=== PATIENT | female | born 1945 | race Caucasian/White ===

== ENCOUNTER 2016-10-28 10:36 | Inpatient (IN) | payer MEDICARE, OTHER ==
[2016-10-28] MEDS ORDERED: Sodium Chloride 0.9% 1,000 ML IV ONE ×2 (11:04→14:18)
[2016-10-28] MEDS ORDERED: Ondansetron 4 MG/2 ML SDV IVPUSH ONE (11:04)
[2016-10-28] MEDS ORDERED: Pantoprazole 40 MG Vial IVPUSH ONE (11:09)
--- NOTE | 2016-10-28 11:10 | EDM.PDOC ---
ED HPI GENERAL MEDICAL PROBLEM - General Chief Complaint: Gastrointestinal Problem Stated Complaint: PT SICK(HAVEN'T EATEN FOR FOUR DAYS) Time Seen by Provider: 10/28/16 10:55 Source of Information: Reports: Patient, Family History Limitations: Reports: No Limitations - History of Present Illness INITIAL COMMENTS - FREE TEXT/NARRATIVE: HISTORY AND PHYSICAL: History of present illness: Patient comes to the emergency room brought in by her daughter. She complains of abdominal pain for the past 5 days, decreased appetite and poor oral intake for the past 4 days. Patient's pain has been getting worse rather than better. Describes the pain as generalized throughout her abdomen but is worse to the epigastric area and to suprapubic area. Has had quite a bit of nausea and a couple episodes of vomiting over the past 2 days. Saw her PCP, Dr. Quiros, on Saturday and was prescribed hydrocodone and Zofran. She's been taking his medications as prescribed and with minimal improvement in her symptoms. Patient states that she took one Zofran this morning and rates her current nausea as 4- 5. Has had a foul odor to urine and some mild burning with urination, no blood in her urine is noted. Has not had a bowel movement for 2 days which is unusual for her. She's had no blood in her stools. Denies fever and chills. No chest pain shortness of breath or difficulty breathing. No earaches or sore throat. No swelling to her feet or lower legs. No joint pain. She is scheduled for a CT of her abdomen and pelvis with oral contrast tomorrow due to elevated liver enzymes and pain. She does not know how she'll be able to drink the oral contrast with the amount of pain and nausea that she is experiencing. Review of systems: As per history of present illness and below otherwise all systems reviewed and negative. Past medical history: As per history of present illness and as reviewed below otherwise noncontributory. Surgical history: As per history of present illness and as reviewed below otherwise noncontributory. Social history: No reported history of drug or alcohol abuse. Family history: As per history of present illness and as reviewed below otherwise noncontributory. Physical exam: HEENT: Atraumatic, normocephalic. Oral mucous membranes are dry. throat clear, neck supple, nontender. Lungs: Clear to auscultation, breath sounds equal bilaterally. Heart: S1S2, regular rate and rhythm. No murmur gallop click or rub., negative for clicks, rubs, or JVD. Abdomen: Bowel sounds are normoactive throughout. Abdomen is soft and nondistended. She is quite tender over the epigastric and suprapubic areas. No guarding masses or rebound. No CVA tenderness. Pelvis: Stable nontender. Genitourinary: Deferred. Rectal: Deferred. Extremities: Atraumatic, negative calf pain cyanosis and edema to feet and lower legs. Neurovascular unremarkable. Neuro: Awake, alert, oriented. Motor and sensory unremarkable throughout. Exam nonfocal. Diagnostics: [CBC, CMP, amylase, lipase, urinalysis, EKG abdominal x-ray] Therapeutics: [1 L normal saline, Zofran 4 mg IV, Protonix 80 mg] Impression: [Abdominal pain Nausea Dehydration Elevated liver enzymes] Plan: As you to patient that her labs are unremarkable other than elevated liver enzymes. Abdominal x-ray shows no obstruction. Patient would like to be admitted for inpatient evaluation and treatment. This is reviewed with Dr. Ancelmo García who agrees to accept patient for observation. He requests that an order be placed for CT abdomen and pelvis with oral contrast but that it will be completed while patient is in observation. And her family are in agreement with today's plan. ] Definitive disposition and diagnosis as appropriate pending reevaluation and review of above. Abdominal Pain Score (Numeric/FACES): 9 - Related Data Allergies Allergy/AdvReac Type Severity Reaction Status Date / Time No Known Allergies Allergy Verified 10/28/16 11:01 Home Meds: Home Meds Albuterol Sulfate [Proair Hfa] 1 - 2 puff INH Q4H PRN 09/30/15 [History] Simvastatin [Zocor] 40 mg PO BEDTIME 09/30/15 [History] Hydrocodone/Acetaminophen [Hydrocodon-Acetaminophen 5-325] 5 - 325 mg PO Q4HR PRN 10/28/16 [History] Ondansetron HCl [Zofran] 4 mg PO Q4H PRN 10/28/16 [History] Past Medical History HEENT History: Reports: Cataract Other HEENT History: wears glasses, has upper denture and lower partial Cardiovascular History: Reports: High Cholesterol Respiratory History: Reports: Asthma Gastrointestinal History: Reports: None Genitourinary History: Reports: None 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 Musculoskeletal History: Reports: Arthritis, Fracture Other Musculoskeletal History: hx of fx ribs and toe Neurological History: Reports: None Psychiatric History: Reports: None Endocrine/Metabolic History: Reports: None Hematologic History: Reports: None Immunologic History: Reports: None Oncologic (Cancer) History: Reports: Cervix, Colon Dermatologic History: Reports: None - Past Surgical History HEENT Surgical History: Reports: Cataract Surgery Oncologic Surgical History: Reports: Other (See Below) Social & Family History - Tobacco Use Smoking Status *Q: Former Smoker - Recreational Drug Use Recreational Drug Use: No Drug Use in Last 12 Months: No ED ROS GENERAL - Review of Systems Review Of Systems: ROS reveals no pertinent complaints other than HPI. ED EXAM, GI/ABD - Physical Exam Exam: See Below Course - Vital Signs Last Recorded V/S: Last Vital Signs Temp 98.7 F 10/28/16 12:47 Pulse 76 10/28/16 14:55 Resp 18 10/28/16 14:55 BP 152/72 H 10/28/16 14:55 Pulse Ox 95 10/28/16 14:55 - Orders/Labs/Meds Orders: Active Orders 24 hr Category Date Time Status Patient Status [ADT] Stat ADT 10/28/16 14:23 Active EKG Documentation Completion [RC] STAT Care 10/28/16 11:06 Active Abdomen 2V AP Flat Upright [CR] Stat Exams 10/28/16 12:31 Taken Abdomen Pelvis w Cont [CT] Stat Exams 10/28/16 14:22 Ordered Sodium Chloride 0.9% [Normal Saline] 1,000 ml Med 10/28/16 14:18 Active IV .Bolus Medication Orders Sodium Chloride (Normal Saline) 1,000 mls @ 999 mls/hr IV .Bolus ONE Stop: 10/28/16 15:18 Last Admin: 10/28/16 14:22 Dose: 999 mls/hr Labs: Laboratory Tests 10/28/16 10/28/16 10/28/16 Range/Units 11:06 11:10 11:10 WBC 8.71 (4.0-11.0) K/uL RBC 4.36 (4.30-5.90) M/uL Hgb 12.5 (12.0-16.0) g/dL Hct 37.2 (36.0-46.0) % MCV 85.3 (80.0-98.0) fL MCH 28.7 (27.0-32.0) pg MCHC 33.6 (31.0-37.0) g/dL RDW Std Deviation 40.8 (28.0-62.0) fl RDW Coeff of Ki 13 (11.0-15.0) % Plt Count 485 H (150-400) K/uL MPV 9.00 (7.40-12.00) fL Neut % (Auto) 78.6 (48.0-80.0) % Lymph % (Auto) 11.3 L (16.0-40.0) % [place] % (Auto) 9.6 (0.0-15.0) % Eos % (Auto) 0.2 (0.0-7.0) % Baso % (Auto) 0.3 (0.0-1.5) % Neut # (Auto) 6.8 H (1.4-5.7) K/uL Lymph # (Auto) 1.0 (0.6-2.4) K/uL [place] # (Auto) 0.8 (0.0-0.8) K/uL Eos # (Auto) 0.0 (0.0-0.7) K/uL Baso # (Auto) 0.0 (0.0-0.1) K/uL Nucleated RBC % 0.0 /100WBC Nucleated RBCs # 0 K/uL Sodium 137 (136-146) mmol/L Potassium 4.3 (3.5-5.1) mmol/L Chloride 103 (98-110) mmol/L Carbon Dioxide 22 (21-31) mmol/L BUN 15 (6.0-23.0) mg/dL Creatinine 0.7 (0.6-1.5) mg/dL Est Cr Clr Drug Dosing 62.73 mL/min Estimated GFR (MDRD) > 60.0 ml/min Glucose 93 (60-110) mg/dL Calcium 9.8 (8.8-10.8) mg/dL Total Bilirubin 0.9 (0.1-1.5) mg/dL AST 113 H (5-40) IU/L ALT 77 H (8-54) IU/L Alkaline Phosphatase 519 H (40-150) Total Protein 6.3 (6.0-8.0) g/dL Albumin 3.4 (3.4-4.8) g/dL Globulin 2.9 (2.0-3.5) g/dL Albumin/Globulin Ratio 1.2 L (1.3-2.8) Amylase 30 (10-90) U/L Lipase 38 (7-80) U/L Urine Color DARK YELLOW Urine Appearance SLT CLOUDY Urine pH 6.0 (5.0-8.0) Ur Specific [place] 1.020 (1.001-1.035) Urine Protein TRACE (NEGATIVE) mg/dL Urine Glucose (UA) NEGATIVE (NEGATIVE) mg/dL Urine Ketones 40 H (NEGATIVE) mg/dL Urine Occult Blood TRACE-LYSED (NEGATIVE) Urine Nitrite NEGATIVE (NEGATIVE) Urine Bilirubin MODERATE H (NEGATIVE) Urine Ictotest NEGATIVE Urine Urobilinogen 4.0 H (<2.0) EU/dL Ur Leukocyte Esterase MODERATE (NEGATIVE) Urine RBC 2-4 (0-2/HPF) Urine WBC 15-20 (0-5/HPF) Ur Epithelial Cells MODERATE (NONE-FEW) Urine Bacteria 1+ H (NEGATIVE) Urine Mucus LIGHT (NONE-MOD) Meds: Medications Generic Name Dose Route Start Last Admin Trade Name Freq PRN Reason Stop Dose Admin Sodium Chloride 1,000 mls @ 999 mls/hr 10/28/16 14:18 10/28/16 14:22 Normal Saline IV 10/28/16 15:18 999 mls/hr .Bolus ONE Administration Discontinued Medications Generic Name Dose Route Start Last Admin Trade Name Freq PRN Reason Stop Dose Admin Sodium Chloride 1,000 mls @ 999 mls/hr 10/28/16 11:04 10/28/16 11:13 Normal Saline IV 10/28/16 12:04 999 mls/hr STAT ONE Administration Pantoprazole Sodium 80 mg/ 10 mls @ 300 mls/hr 10/28/16 11:24 10/28/16 11:27 Sodium Chloride IVPUSH 10/28/16 11:25 Not Given NOW ONE Ondansetron HCl 4 mg 10/28/16 11:04 10/28/16 11:14 Zofran IVPUSH 10/28/16 11:05 4 mg ONETIME ONE Administration Pantoprazole Sodium 80 mg 10/28/16 11:09 10/28/16 11:27 Protonix Iv IVPUSH 10/28/16 11:10 80 mg .BOLUS ONE Administration Departure - Departure Time of Disposition: 14:23 Disposition: Refer to Observation Condition: Good Clinical Impression: Abdominal pain - Discharge Information - My Orders Last 24 Hours: My Active Orders 10/28/16 11:06 EKG Documentation Completion [RC] STAT 10/28/16 12:31 Abdomen 2V AP Flat Upright [CR] Stat 10/28/16 14:18 Sodium Chloride 0.9% [Normal Saline] 1,000 ml IV .Bolus 10/28/16 14:22 Abdomen Pelvis w Cont [CT] Stat 10/28/16 14:23 Patient Status [ADT] Stat - Assessment/Plan Last 24 Hours: My Active Orders 10/28/16 11:06 EKG Documentation Completion [RC] STAT 10/28/16 12:31 Abdomen 2V AP Flat Upright [CR] Stat 10/28/16 14:18 Sodium Chloride 0.9% [Normal Saline] 1,000 ml IV .Bolus 10/28/16 14:22 Abdomen Pelvis w Cont [CT] Stat 10/28/16 14:23 Patient Status [ADT] Stat
[2016-10-28] MEDS ORDERED: Pantoprazole 80 MG in Sodium Chloride 0.9% 10 ML IVPUSH ONE (11:24)
[2016-10-28 11:47] LABS: CHLORIDE,CL 103 mmol/L (98-110); SODIUM,NA 137 mmol/L (136-146)
[2016-10-28] MEDS: Sodium Chloride 0.9% 1,000 ML IV SCH (15:57)
[2016-10-28] MEDS ORDERED: Iopamidol 755 MG/ML 500 ML Multipack Bottle IVPUSH STA (17:47)
[2016-10-28] MEDS: Ondansetron 4 MG/2 ML SDV IVPUSH PRN ×2 (17:51→22:10)
--- NOTE | 2016-10-28 19:40 | PCM.HP ---
H&P History of Present Illness - History of Present Illness Initial Comments - Free Text/Narative: 70 yo female with a history of nausea and abdominal discomfort for the past two months. Over the past several days she has not been able to keep anything down and has become progressively week. She was seen by Dr. Quiros and noted to have elevated liver enzymes, She had a liver ultrasound that was abdnormal and she was schedualed for a CT scan tomorrow. Due to worsening of her symptoms she presented to the ED today. CT scan of abdomen was performed and showed numerous large massess throughout the liver consistent with metastatic dsease. There are enlarged lymph nodes abutting the uncinate process of the pancreas and the 3rd part of the duodenum which demonstrated wall thickening. She has a history of colon cancer in 2003 with resection. She reports she did not need chemotherapy and she had follow up for five years without reoccurrence. She had a recent colonoscopy last year which reported polyps and sigmoiditis. Abdominal Pain Score (Numeric/FACES): 9 - Related Data Allergies/Adverse Reactions: Allergies Allergy/AdvReac Type Severity Reaction Status Date / Time No Known Allergies Allergy Verified 10/28/16 11:01 Home Medications: Home Meds Albuterol Sulfate [Proair Hfa] 1 - 2 puff INH Q4H PRN 09/30/15 [History] Simvastatin [Zocor] 40 mg PO BEDTIME 09/30/15 [History] Hydrocodone/Acetaminophen [Hydrocodon-Acetaminophen 5-325] 5 - 325 mg PO Q4HR PRN 10/28/16 [History] Ondansetron HCl [Zofran] 4 mg PO Q4H PRN 10/28/16 [History] Triamcinolone Acetonide [Triamcinolone Acetonide 0.1% Crm] PRN 10/28/16 [History ] Past Medical History HEENT History: Reports: Cataract Other HEENT History: wears glasses, has upper denture and lower partial Cardiovascular History: Reports: High Cholesterol Respiratory History: Reports: Asthma Gastrointestinal History: Reports: None Genitourinary History: Reports: 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 Musculoskeletal History: Reports: Arthritis, Fracture Other Musculoskeletal History: hx of fx ribs and toe Neurological History: Reports: None Psychiatric History: Reports: None Endocrine/Metabolic History: Reports: None Hematologic History: Reports: None Immunologic History: Reports: None Oncologic (Cancer) History: Reports: Cervix, Colon Dermatologic History: Reports: None - Infectious Disease History Infectious Disease History: Reports: Chicken Pox, Measles, Mumps - Past Surgical History HEENT Surgical History: Reports: Cataract Surgery Oncologic Surgical History: Reports: Other (See Below) Social & Family History - Family History Family Medical History: Noncontributory - Tobacco Use Smoking Status *Q: Former Smoker Second Hand Smoke Exposure: Yes - Caffeine Use Caffeine Use: Reports: Coffee Other Caffeine Use: 3 cups/day Caffeine Use Comment: 1-2cups/day - Recreational Drug Use Recreational Drug Use: No Drug Use in Last 12 Months: No H&P Review of Systems - Review of Systems: Review Of Systems: ROS reveals no pertinent complaints other than HPI. Exam - Exam Exam: See Below - Vital Signs Vital Signs: Last Vital Signs Temp 36.3 C 10/28/16 14:59 Pulse 72 10/28/16 17:20 Resp 18 10/28/16 17:20 BP 180/88 H 10/28/16 17:20 Pulse Ox 94 L 10/28/16 17:20 Weight: 69.717 kg - Exam General: Alert, Oriented, 4 Lungs: Clear to Auscultation, Normal Respiratory Effort Cardiovascular: Regular Rate, Regular Rhythm GI/Abdominal Exam: Soft, Non-Tender, No Distention, No Mass Extremities: Normal Inspection, Normal Range of Motion, Non-Tender, No Pedal Edema, Normal Capillary Refill Skin: Warm, Dry, Intact - Patient Data Result Diagrams: 10/28/16 11:10 10/28/16 11:10 *Q Meaningful Use (ADM) - VTE *Q VTE Criteria *Q: - Stroke *Q Stroke Criteria *Q: - AMI *Q AMI Criteria *Q: Problem List Initiated/Reviewed/Updated: Yes Orders Last 24hrs: Active Orders 24 hr Category Date Time Status Antiembolic Devices [RC] PER UNIT ROUTINE Care 10/28/16 19:29 Ordered Oxygen Therapy [RC] PRN Care 10/28/16 19:28 Ordered VTE/DVT Education [RC] PER UNIT ROUTINE Care 10/28/16 19:28 Ordered Vital Signs [RC] Q4H Care 10/28/16 19:28 Ordered NPO [Nothing Per Oral Diet] [DIET] Diet 10/28/16 Dinner Active Morphine Med 10/28/16 19:28 Ordered 2 mg IVPUSH Q2H PRN Ondansetron [Zofran] Med 10/28/16 15:30 Active 4 mg IVPUSH Q3H PRN Promethazine [Phenergan] Med 10/28/16 19:28 Ordered 25 mg IM Q6H PRN Sodium Chloride 0.9% [Normal Saline] 1,000 ml Med 10/28/16 15:30 Active IV ASDIRECTED Sequential Compression Device [OM.PC] Per Unit Routine Oth 10/28/16 19:29 Ordered Resuscitation Status Routine Resus Stat 10/28/16 19:28 Ordered Medication Orders Sodium Chloride (Normal Saline) 1,000 mls @ 125 mls/hr IV ASDIRECTED LUIZA Last Admin: 10/28/16 15:57 Dose: 125 mls/hr Ondansetron HCl (Zofran) 4 mg IVPUSH Q3H PRN PRN Reason: Nausea/Vomiting Last Admin: 10/28/16 17:51 Dose: 4 mg Assessment/Plan Comment:: 70 yo female admitted with intractable nausea and vomiting. When informed of the CT scan results patient would prefer not to have any further work up and focus on palliative care. Will treat with IV fluids, antiemetics and prn pain medications.
[2016-10-28] MEDS: Morphine 2 MG/ML Syringe IVPUSH PRN (22:13)
[2016-10-29] MEDS: Sodium Chloride 0.9% 1,000 ML IV SCH ×3 (00:40→17:38)
[2016-10-29] MEDS: Morphine 2 MG/ML Syringe IVPUSH PRN ×5 (01:20→21:29)
[2016-10-29] MEDS: Promethazine 25 MG/ML SDV IM PRN ×2 (01:28→21:29)
[2016-10-29] MEDS: Ondansetron 4 MG/2 ML SDV IVPUSH PRN ×3 (10:03→18:55)
--- NOTE | 2016-10-29 13:34 | CR ---
EXAM DATE: 10/28/16 PATIENT'S AGE: 70 Patient: CHRISTINA HULL Facility: [place], [place] Site . Site : 1945 Study: XRay Abdomen [id number] 1:05:34 PM Ordering Physician: Doctor Vasquez Final Report: INDICATION: ABDOMEN PAIN TECHNIQUE: Abdomen 3 view. COMPARISON: None. FINDINGS: Bowel: Bowel pattern is normal. No significant stool in the colon. Soft tissues: No sign of free air. No sign of soft tissue mass. No suspicious calcifications. Bones: Unremarkable for age. IMPRESSION: Unremarkable abdomen. Dictated by: Saul Busch MD @ 10/28/2016 13:56:01 (Electronic Signature) Report Signed by Proxy. YIN
[2016-10-29] MEDS ORDERED: Albuterol 8 GM Inhaler INH PRN (13:47)
--- NOTE | 2016-10-29 13:49 | CT ---
EXAM DATE: 10/28/16 PATIENT'S AGE: 70 Patient: CHRISTINA HULL Facility: [place], [place] Site . Site : 1945 Study: CT Abdomen/Pelvis [id number]/27/2017 5:12:52 PM Ordering Physician: Doctor Vasquez Final Report: INDICATION: Abdominal pain. Elevated liver function tests. TECHNIQUE: CT abdomen and pelvis acquired with 100 cc Isovue 370 IV and oral contrast. COMPARISON: None. FINDINGS: LIVER: There are numerous large low-attenuation masses throughout the liver. These masses measure up to 8 cm. GALLBLADDER AND BILE DUCTS: Unremarkable. PANCREAS: There were low-attenuation masses consistent with enlarged lymph nodes between the uncinate process of the pancreas and the aorta. Remainder of the pancreas is unremarkable. SPLEEN: Normal in caliber. No masses. ADRENAL GLANDS: Unremarkable. No masses. KIDNEYS: Normal in caliber. No masses. GI TRACT: Wall thickening is present in the 3rd part of the duodenum adjacent to the anterior wall of the aorta as demonstrated on the axial series image 89. Mild wall thickening is present in a segment of proximal sigmoid colon. There is diverticulosis. Remainder of the GI tract is unremarkable. VASCULATURE: Unremarkable. LYMPH NODES: Enlarged lymph nodes are in the retroperitoneum between the pancreas and aorta. There is at least 1 mildly enlarged periportal lymph node. No sign of lymphadenopathy elsewhere. ABDOMINAL WALL/OMENTUM/PERITONEUM: Unremarkable. No free air or significant free fluid. PELVIC ORGANS: Unremarkable. BONES: No suspicious bone lesions. IMPRESSION: 1. Numerous large masses throughout the liver consistent with metastatic disease. 2. There are enlarged lymph nodes abutting the uncinate process of the pancreas and the 3rd part of the duodenum which demonstrates wall thickening. A primary or secondary malignancy involving any or all of these parts is possible. 3. Wall thickening is present in a segment of sigmoid colon. This should be evaluated as a possible source of malignancy. 4. Remainder of the exam is unremarkable. Dictated by Saul Busch MD @ 10/28/2016 5:57:04 PM Dictated by: Saul Busch MD @ 10/28/2016 17:57:43 (Electronic Signature) Report Signed by Proxy. [facility]ITAL[facility]
--- NOTE | 2016-10-29 17:41 | PCM.PN ---
- Review of Systems Systems Review Comment:: abdominal pain and nausea are controlled with medications - Patient Data Vitals - Most Recent: Last Vital Signs Temp 37.3 C 10/29/16 12:00 Pulse 80 10/29/16 12:00 Resp 18 10/29/16 12:00 BP 154/73 H 10/29/16 12:00 Pulse Ox 92 L 10/29/16 12:00 Weight - Most Recent: 69.717 kg I&O - Last 24 Hours: Intake & Output 10/29/16 10/29/16 10/29/16 06:59 14:59 22:59 Intake Total 1050 1000 490 Output Total 1300 1100 Balance -250 1000 -610 Med Orders - Current: Current Medications Albuterol (Ventolin Hfa) 0 gm INH Q4H PRN PRN Reason: Wheezing Sodium Chloride (Normal Saline) 1,000 mls @ 125 mls/hr IV ASDIRECTED LUIZA Last Admin: 10/29/16 09:07 Dose: 125 mls/hr Morphine Sulfate (Morphine) 2 mg IVPUSH Q2H PRN PRN Reason: Pain (severe 7-10) Stop: 10/29/16 19:29 Last Admin: 10/29/16 14:49 Dose: 2 mg Ondansetron HCl (Zofran) 4 mg IVPUSH Q3H PRN PRN Reason: Nausea/Vomiting Last Admin: 10/29/16 14:49 Dose: 4 mg Promethazine HCl (Phenergan) 25 mg IM Q6H PRN PRN Reason: Nausea Last Admin: 10/29/16 01:28 Dose: 25 mg Simvastatin (Zocor) 40 mg PO BEDTIME LUIZA Discontinued Medications Sodium Chloride (Normal Saline) 1,000 mls @ 999 mls/hr IV STAT ONE Stop: 10/28/16 12:04 Last Admin: 10/28/16 11:13 Dose: 999 mls/hr Pantoprazole Sodium 80 mg/ (Sodium Chloride) 10 mls @ 300 mls/hr IVPUSH NOW ONE Stop: 10/28/16 11:25 Last Admin: 10/28/16 11:27 Dose: Not Given Sodium Chloride (Normal Saline) 1,000 mls @ 999 mls/hr IV .Bolus ONE Stop: 10/28/16 15:18 Last Admin: 10/28/16 14:22 Dose: 999 mls/hr Iopamidol (Isovue Multipack-370 (76%)) 100 ml IVPUSH ONETIME STA Stop: 10/28/16 17:48 Last Admin: 10/28/16 17:48 Dose: 100 ml Ondansetron HCl (Zofran) 4 mg IVPUSH ONETIME ONE Stop: 10/28/16 11:05 Last Admin: 10/28/16 11:14 Dose: 4 mg Pantoprazole Sodium (Protonix Iv) 80 mg IVPUSH .BOLUS ONE Stop: 10/28/16 11:10 Last Admin: 10/28/16 11:27 Dose: 80 mg - Exam General: Alert, Oriented Lungs: Clear to Auscultation, Normal Respiratory Effort Cardiovascular: Regular Rate, Regular Rhythm GI/Abdominal Exam: Soft, Non-Tender, No Distention Extremities: Non-Tender, No Pedal Edema Skin: Warm, Dry, Intact - Problem List Review Problem List Initiated/Reviewed/Updated: Yes - My Orders Last 24 Hours: My Active Orders 10/28/16 19:28 Oxygen Therapy [RC] PRN VTE/DVT Education [RC] PER UNIT ROUTINE Vital Signs [RC] Q4H Morphine 2 mg IVPUSH Q2H PRN Promethazine [Phenergan] 25 mg IM Q6H PRN Resuscitation Status Routine 10/28/16 19:29 Antiembolic Devices [RC] PER UNIT ROUTINE Sequential Compression Device [OM.PC] Per Unit Routine 10/28/16 20:39 Consult to Hospice [CONS] Routine 10/29/16 Breakfast Clear Liquid Diet [DIET] - Plan Plan:: 70 yo female admitted with intractable nausea and vomiting from what is likely advance metastatic disease. Hospice has been consulted. We will continue palliative care her until home care can be arranged.
[2016-10-29] MEDS: Simvastatin 40 MG Tab PO SCH (21:19)
[2016-10-30] MEDS: Sodium Chloride 0.9% 1,000 ML IV SCH ×3 (02:37→18:59)
[2016-10-30] MEDS: Morphine 2 MG/ML Syringe IVPUSH PRN ×4 (09:58→20:56)
[2016-10-30] MEDS: Ondansetron 4 MG/2 ML SDV IVPUSH PRN ×3 (09:58→20:59)
--- NOTE | 2016-10-30 10:15 | PCM.PN ---
- Review of Systems Systems Review Comment:: abdominal pain and nausea controlled with IV medications. - Patient Data Vitals - Most Recent: Last Vital Signs Temp 36.7 C 10/30/16 08:41 Pulse 88 10/30/16 08:41 Resp 19 10/30/16 08:41 BP 140/78 10/30/16 08:41 Pulse Ox 93 L 10/30/16 08:41 Weight - Most Recent: 69.717 kg I&O - Last 24 Hours: Intake & Output 10/29/16 10/30/16 10/30/16 22:59 06:59 14:59 Intake Total 708 1300 Output Total 1100 650 Balance -392 650 Med Orders - Current: Current Medications Albuterol (Ventolin Hfa) 0 gm INH Q4H PRN PRN Reason: Wheezing Sodium Chloride (Normal Saline) 1,000 mls @ 125 mls/hr IV ASDIRECTED [facility] Last Admin: 10/30/16 10:11 Dose: 125 mls/hr Morphine Sulfate (Morphine) 2 mg IVPUSH Q2H PRN PRN Reason: Pain Last Admin: 10/30/16 09:58 Dose: 2 mg Ondansetron HCl (Zofran) 4 mg IVPUSH Q3H PRN PRN Reason: Nausea/Vomiting Last Admin: 10/30/16 09:58 Dose: 4 mg Promethazine HCl (Phenergan) 25 mg IM Q6H PRN PRN Reason: Nausea Last Admin: 10/29/16 21:29 Dose: 25 mg Simvastatin (Zocor) 40 mg PO BEDTIME [facility] Last Admin: 10/29/16 21:19 Dose: Not Given Discontinued Medications Sodium Chloride (Normal Saline) 1,000 mls @ 999 mls/hr IV STAT ONE Stop: 10/28/16 12:04 Last Admin: 10/28/16 11:13 Dose: 999 mls/hr Pantoprazole Sodium 80 mg/ (Sodium Chloride) 10 mls @ 300 mls/hr IVPUSH NOW ONE Stop: 10/28/16 11:25 Last Admin: 10/28/16 11:27 Dose: Not Given Sodium Chloride (Normal Saline) 1,000 mls @ 999 mls/hr IV .Bolus ONE Stop: 10/28/16 15:18 Last Admin: 10/28/16 14:22 Dose: 999 mls/hr Iopamidol (Isovue Multipack-370 (76%)) 100 ml IVPUSH ONETIME STA Stop: 10/28/16 17:48 Last Admin: 10/28/16 17:48 Dose: 100 ml Morphine Sulfate (Morphine) 2 mg IVPUSH Q2H PRN PRN Reason: Pain (severe 7-10) Stop: 10/29/16 19:29 Last Admin: 10/29/16 19:03 Dose: 2 mg Ondansetron HCl (Zofran) 4 mg IVPUSH ONETIME ONE Stop: 10/28/16 11:05 Last Admin: 10/28/16 11:14 Dose: 4 mg Pantoprazole Sodium (Protonix Iv) 80 mg IVPUSH .BOLUS ONE Stop: 10/28/16 11:10 Last Admin: 10/28/16 11:27 Dose: 80 mg - Exam General: Alert, Oriented Lungs: Clear to Auscultation, Normal Respiratory Effort Cardiovascular: Regular Rate, Regular Rhythm GI/Abdominal Exam: Soft, Non-Tender Extremities: Normal Inspection Skin: Warm, Dry, Intact - Problem List Review Problem List Initiated/Reviewed/Updated: Yes - My Orders Last 24 Hours: My Active Orders 10/29/16 20:13 Morphine 2 mg IVPUSH Q2H PRN 10/30/16 10:06 Admission Status [Patient Status] [ADT] Routine - Plan Plan:: 70 yo female admitted with intractable nausea and vomiting from advance metastatic disease. Requiring IV medications for pain and nausea. Hospice has been consulted and eventual plan is discharge with hospice to brother's house.
[2016-10-30] MEDS: Promethazine 25 MG/ML SDV IM PRN (15:47)
[2016-10-30] MEDS: Simvastatin 40 MG Tab PO SCH (20:52)
[2016-10-31] MEDS: Morphine 2 MG/ML Syringe IVPUSH PRN ×6 (03:16→23:42)
[2016-10-31] MEDS: Ondansetron 4 MG/2 ML SDV IVPUSH PRN ×5 (03:20→23:45)
[2016-10-31] MEDS: Sodium Chloride 0.9% 1,000 ML IV SCH ×3 (03:30→20:48)
[2016-10-31] MEDS: Promethazine 25 MG/ML SDV IM PRN (10:16)
--- NOTE | 2016-10-31 12:01 | PCM.PN ---
- Review of Systems Systems Review Comment:: reports increase in nausea today. - Patient Data Vitals - Most Recent: Last Vital Signs Temp 37.0 C 10/31/16 08:00 Pulse 84 10/31/16 08:00 Resp 18 10/31/16 08:00 BP 150/86 H 10/31/16 08:00 Pulse Ox 90 L 10/31/16 08:00 Weight - Most Recent: 69.717 kg I&O - Last 24 Hours: Intake & Output 10/30/16 10/31/16 10/31/16 22:59 06:59 14:59 Intake Total 1219 1400 Output Total 1520 1420 Balance -301 -20 Med Orders - Current: Current Medications Albuterol (Ventolin Hfa) 0 gm INH Q4H PRN PRN Reason: Wheezing Sodium Chloride (Normal Saline) 1,000 mls @ 125 mls/hr IV ASDIRECTED LUIZA Last Admin: 10/31/16 11:53 Dose: 125 mls/hr Morphine Sulfate (Morphine) 2 mg IVPUSH Q2H PRN PRN Reason: Pain Last Admin: 10/31/16 10:18 Dose: 2 mg Ondansetron HCl (Zofran) 4 mg IVPUSH Q3H PRN PRN Reason: Nausea/Vomiting Last Admin: 10/31/16 07:54 Dose: 4 mg Promethazine HCl (Phenergan) 25 mg IM Q6H PRN PRN Reason: Nausea Last Admin: 10/31/16 10:16 Dose: 25 mg Discontinued Medications Sodium Chloride (Normal Saline) 1,000 mls @ 999 mls/hr IV STAT ONE Stop: 10/28/16 12:04 Last Admin: 10/28/16 11:13 Dose: 999 mls/hr Pantoprazole Sodium 80 mg/ (Sodium Chloride) 10 mls @ 300 mls/hr IVPUSH NOW ONE Stop: 10/28/16 11:25 Last Admin: 10/28/16 11:27 Dose: Not Given Sodium Chloride (Normal Saline) 1,000 mls @ 999 mls/hr IV .Bolus ONE Stop: 10/28/16 15:18 Last Admin: 10/28/16 14:22 Dose: 999 mls/hr Iopamidol (Isovue Multipack-370 (76%)) 100 ml IVPUSH ONETIME STA Stop: 10/28/16 17:48 Last Admin: 10/28/16 17:48 Dose: 100 ml Morphine Sulfate (Morphine) 2 mg IVPUSH Q2H PRN PRN Reason: Pain (severe 7-10) Stop: 10/29/16 19:29 Last Admin: 10/29/16 19:03 Dose: 2 mg Ondansetron HCl (Zofran) 4 mg IVPUSH ONETIME ONE Stop: 10/28/16 11:05 Last Admin: 10/28/16 11:14 Dose: 4 mg Pantoprazole Sodium (Protonix Iv) 80 mg IVPUSH .BOLUS ONE Stop: 10/28/16 11:10 Last Admin: 10/28/16 11:27 Dose: 80 mg Simvastatin (Zocor) 40 mg PO BEDTIME LUIZA Last Admin: 10/30/16 20:52 Dose: Not Given - Exam General: Alert, Oriented Lungs: Clear to Auscultation, Normal Respiratory Effort Cardiovascular: Regular Rate, Regular Rhythm GI/Abdominal Exam: Soft, No Distention Extremities: Non-Tender, No Pedal Edema Skin: Warm, Dry, Intact - Problem List Review Problem List Initiated/Reviewed/Updated: Yes - Plan Plan:: 70 yo female admitted with intractable nausea and vomiting from advance metastatic disease. Requiring IV medications for pain and nausea. the plan is for discharge home with hospice tomorrow.
[2016-11-01] MEDS: Sodium Chloride 0.9% 1,000 ML IV SCH (04:55)
[2016-11-01] MEDS: Morphine 2 MG/ML Syringe IVPUSH PRN ×2 (04:58→08:29)
[2016-11-01] MEDS: Ondansetron 4 MG/2 ML SDV IVPUSH PRN ×2 (05:06→08:37)
[2016-11-01 08:40] VITALS: BP 175/84
--- NOTE | 2016-11-01 08:59 | PCM.DCSUM1 ---
Discharge Summary - Discharge Data Discharge Date: 11/01/16 Discharge Disposition: DC/Tfer to Hospice - Home 48 Condition: Fair - Patient Summary/Data Hospital Course: Admission diagnosis Intractable nausea and vomiting Abdominal pain Metastatic cancer 70 yo female with a history of nausea and abdominal discomfort for the past two months. Over the past several days before admission she has not been able to keep anything down and has become progressively week. CT scan of abdomen was performed and showed numerous large masses throughout the liver consistent with metastatic dsease, enlarged lymph nodes abutting the uncinate process of the pancreas and the 3rd part of the duodenum which demonstrated wall thickening. She has a history of colon cancer in 2003 with resection. She reports she did not need chemotherapy and she had follow up for five years without reoccurrence. She had a recent colonoscopy last year which reported polyps and sigmoiditis. She was admitted and treated with IV fluids, zofran, phenergen and morphin with improvement in her symptoms. PAtient declined further work up of her masses in her liver and requested hospice. Patient was discharged home to her brother's house on hospice. - Patient Instructions Diet: Usual Diet as Tolerated Activity: As Tolerated - Discharge Plan Prescriptions/Med Rec: Morphine [Morphine 20 MG/ML Soln] 5 mg SL Q2H PRN #1 bottle PRN Reason: Pain Ondansetron [Zofran ODT] 4 mg PO Q4H PRN #30 tab.dis PRN Reason: Nausea Promethazine [Phenergan] 25 mg PO Q4H PRN #30 tablet PRN Reason: Nausea Home Medications: Home Meds Hydrocodone/Acetaminophen [Hydrocodon-Acetaminophen 5-325] 5 - 325 mg PO Q4HR PRN 10/28/16 [History] Triamcinolone Acetonide [Triamcinolone Acetonide 0.1% Crm] PRN 10/28/16 [History ] Morphine [Morphine 20 MG/ML Soln] 5 mg SL Q2H PRN #1 bottle 11/01/16 [Rx] Ondansetron [Zofran ODT] 4 mg PO Q4H PRN #30 tab.dis 11/01/16 [Rx] Promethazine [Phenergan] 25 mg PO Q4H PRN #30 tablet 11/01/16 [Rx] Referrals: PCP,None [Primary Care Provider] - - Patient Data Vitals - Most Recent: Last Vital Signs Temp 37.2 C 11/01/16 08:00 Pulse 78 11/01/16 08:00 Resp 22 H 11/01/16 08:00 BP 175/84 H 11/01/16 08:00 Pulse Ox 93 L 11/01/16 08:00 Weight - Most Recent: 69.717 kg I&O - Last 24 hours: Intake & Output 10/31/16 11/01/16 11/01/16 22:59 06:59 14:59 Intake Total 2183 1382 Output Total 1500 500 Balance 683 882 Med Orders - Current: Current Medications Albuterol (Ventolin Hfa) 0 gm INH Q4H PRN PRN Reason: Wheezing Sodium Chloride (Normal Saline) 1,000 mls @ 125 mls/hr IV ASDIRECTED LUIZA Last Admin: 11/01/16 04:55 Dose: 125 mls/hr Morphine Sulfate (Morphine) 2 mg IVPUSH Q2H PRN PRN Reason: Pain Last Admin: 11/01/16 08:29 Dose: 2 mg Ondansetron HCl (Zofran) 4 mg IVPUSH Q3H PRN PRN Reason: Nausea/Vomiting Last Admin: 11/01/16 08:37 Dose: 4 mg Promethazine HCl (Phenergan) 25 mg IM Q6H PRN PRN Reason: Nausea Last Admin: 10/31/16 10:16 Dose: 25 mg Discontinued Medications Sodium Chloride (Normal Saline) 1,000 mls @ 999 mls/hr IV STAT ONE Stop: 10/28/16 12:04 Last Admin: 10/28/16 11:13 Dose: 999 mls/hr Pantoprazole Sodium 80 mg/ (Sodium Chloride) 10 mls @ 300 mls/hr IVPUSH NOW ONE Stop: 10/28/16 11:25 Last Admin: 10/28/16 11:27 Dose: Not Given Sodium Chloride (Normal Saline) 1,000 mls @ 999 mls/hr IV .Bolus ONE Stop: 10/28/16 15:18 Last Admin: 10/28/16 14:22 Dose: 999 mls/hr Iopamidol (Isovue Multipack-370 (76%)) 100 ml IVPUSH ONETIME STA Stop: 10/28/16 17:48 Last Admin: 10/28/16 17:48 Dose: 100 ml Morphine Sulfate (Morphine) 2 mg IVPUSH Q2H PRN PRN Reason: Pain (severe 7-10) Stop: 10/29/16 19:29 Last Admin: 10/29/16 19:03 Dose: 2 mg Ondansetron HCl (Zofran) 4 mg IVPUSH ONETIME ONE Stop: 10/28/16 11:05 Last Admin: 10/28/16 11:14 Dose: 4 mg Pantoprazole Sodium (Protonix Iv) 80 mg IVPUSH .BOLUS ONE Stop: 10/28/16 11:10 Last Admin: 10/28/16 11:27 Dose: 80 mg Simvastatin (Zocor) 40 mg PO BEDTIME LUIZA Last Admin: 10/30/16 20:52 Dose: Not Given *Q Meaningful Use (DIS) - VTE *Q VTE Criteria *Q: - Stroke *Q Stroke Criteria *Q: - AMI *Q AMI Criteria *Q:
[2016-11-01] MEDS ORDERED: Morphine Oral Concentrate 20 MG/ML 30 ML Bottle SL PRN (09:10)
[2016-11-01] MEDS: Promethazine 25 MG/ML SDV IM PRN (13:11)
== END 2016-11-01 13:30 | disposition hospice, home (50) | DRG 392 ==
LOC: MW.ED 10:36 → MW.MS 14:40 → OBSVTOIN 10-30 10:06 → MW.MS 10-30 13:13
PROVIDERS: ADMIT Internal Medicine; ATTEND Internal Medicine
DX: R10.9 Unspecified abdominal pain (principal); C78.7 Secondary malignant neoplasm of liver and intrahepatic bile duct; R11.2 Nausea with vomiting, unspecified; Z85.038 Personal history of other malignant neoplasm of large intestine; Z79.899 Other long term (current) drug therapy; Z87.891 Personal history of nicotine dependence; E78.00 Pure hypercholesterolemia, unspecified; Z51.5 Encounter for palliative care
CPT/HCPCS: 74020; 74177; 80053; 81001; 82150; 83690; 85025; 93005; 96361; 96374; 96375; 99285; C9113; J2270 ×7; J2405 ×7; J2550 ×2; J7040 ×7; Q9967; 96372; 96376; 99284; A9270-GY; G0378